=== PATIENT | female | born 1995 | race Two or more races ===

== ENCOUNTER 2017-08-17 03:55 | Emergency (ER) | payer OTHER ==
[~2017-08-17] VITALS: Ht 157.5 cm; Wt 47.0 kg
[2017-08-17] MEDS ORDERED: IBUPROFEN 600MG TABLET PO ONE (09:15)
[2017-08-17 09:43] VITALS: BP 110/68
== END 2017-08-17 09:45 | disposition home or self-care (01) ==
LOC: ER 03:55
DX: M54.2 Cervicalgia (principal); M79.1 Myalgia; M54.9 Dorsalgia, unspecified; Z88.0 Allergy status to penicillin; Z88.8 Allergy status to other drugs, medicaments and biological substances; V49.9XXA Car occupant (driver) (passenger) injured in unspecified traffic accident, initial encounter; Y93.89 Activity, other specified; Y92.89 Other specified places as the place of occurrence of the external cause; Y99.8 Other external cause status
CPT/HCPCS: 81025; 99283